=== PATIENT | male | born 1945 | race Caucasian/White ===

== ENCOUNTER 2017-07-04 07:36 | Day surgery (SDC) | payer MEDICARE, BC ==
[~2017-07-04 07:36] MED LIST: Cefuroxime 10 MG/ML SYRINGE EYERT SCH; Lidocaine 1% PF 2 ML SDV INJECT SCH; Pilocarpine 4% Ophth Soln 15 ML Bot EYERT SCH
[2017-07-04] MEDS: Polymyxin B/Trimethoprim 10 ML Bottle EYERT SCH ×3 (07:44→09:15)
[2017-07-04] MEDS: Brimonidine 0.2% Ophth Soln 5 ML Bottle EYERT SCH ×3 (07:48→09:15)
--- NOTE | 2017-07-04 07:50 | PCM.PREANE ---
Preanesthetic Assessment - Anesthesia/Transfusion/Family Hx Anesthesia History: Prior Anesthesia Without Reaction Family History of Anesthesia Reaction: No Transfusion History: No Prior Transfusion(s) Intubation History: Unknown - Review of Systems General: No Symptoms Pulmonary: No Symptoms (quit smoking in 1967) Cardiovascular: No Symptoms, Palpitations Gastrointestinal: No Symptoms (gerd) Neurological: Numbness (diabetic neuropathy noted bilateral feet.) Other: Reports: Easy Bleeding, Diabetes (on metformin and levimir, and glybizide), Thyroid Problems (hypothyroid) - Physical Assessment NPO Status Date: 07/03/17 NPO Status Time: 19:00 Pulse: 63 O2 Sat by Pulse Oximetry: 96 Respiratory Rate: 16 Blood Pressure: 134/71 Temperature: 36.1 C Height: 1.93 m Weight: 95.254 kg ASA Class: 2 Mental Status: Alert & Oriented x3 Airway Class: Mallampati = 2 Dentition: Reports: Normal Dentition, Partial (upper), Missing Tooth/Teeth, Caries Thyro-Mental Finger Breadths: 3 Mouth Opening Finger Breadths: 3 ROM/Head Extension: Full Lungs: Clear to Auscultation, Normal Respiratory Effort Cardiovascular: Regular Rate, Regular Rhythm, No Murmurs - Allergies Allergies/Adverse Reactions: Allergies Allergy/AdvReac Type Severity Reaction Status Date / Time No Known Allergies Allergy Verified 07/03/17 10:38 - Anesthesia Plan Pre-Op Medication Ordered: None - Acknowledgements Anesthesia Type Planned: MAC Pt an Appropriate Candidate for the Planned Anesthesia: Yes Alternatives and Risks of Anesthesia Discussed w Pt/Guardian: Yes Pt/Guardian Understands and Agrees with Anesthesia Plan: Yes PreAnesthesia Questionnaire - HOME MEDS Home Medications: Home Meds Aspirin [Adult Low Dose Aspirin EC] 81 mg PO DAILY 07/03/17 [History] Insulin Detemir [Levemir] 1 dose SQ BID 07/03/17 [History] Levothyroxine [Synthroid] 100 mcg PO DAILY 07/03/17 [History] glipiZIDE [Glucotrol] 5 mg PO ASDIRECTED 07/03/17 [History] metFORMIN HCl [Metformin HCl] 1,000 mg PO BID 07/03/17 [History] - CURRENT (IN HOUSE) MEDS Current Meds: Current Medications Brimonidine Tartrate (Alphagan 0.2% Oph Soln) 0 ml EYERT ASDIRECTED [facility] Cefuroxime Sodium (Zinacef) 0 mg EYERT ASDIRECTED [facility] Lidocaine HCl (Xylocaine-Mpf 1%) 10 ml INJECT ASDIRECTED [facility] Phenylephrine HCl (Barak-Synephrine 2.5% Ophth Soln) 0 ml EYERT ASDIRECTED [facility] Pilocarpine HCl (Pilocar 4% Ophth Soln) 0 ml EYERT ASDIRECTED [facility] Polymyxin/Trimethoprim Sulfate (Polytrim Ophth Soln) 0 ml EYERT ASDIRECTED [facility] Tetracaine HCl (Tetracaine 0.5% Steri-Unit Eliana) 0 ml EYERT ASDIRECTED [facility] Tropicamide (Mydriacyl 1% Ophth Soln) 0 ml EYERT ASDIRECTED [facility] Stop: 07/07/17 06:01
[2017-07-04] MEDS: Phenylephrine 2.5% Ophth Soln 2 ML Bot EYERT SCH ×5 (07:52→08:57)
[2017-07-04] MEDS: Tetracaine HCl/PF 0.5% 4 ML Bottle EYERT SCH ×2 (08:45→09:07)
--- NOTE | 2017-07-04 09:16 | PCM48HPAN ---
Post Anesthesia Note - EVALUATION WITHIN 48HRS OF ANESTHETIC Vital Signs in Normal Range: Yes Patient Participated in Evaluation: Yes Respiratory Function Stable: Yes Airway Patent: Yes Cardiovascular Function Stable: Yes Hydration Status Stable: Yes Pain Control Satisfactory: Yes Nausea and Vomiting Control Satisfactory: Yes Mental Status Recovered: Yes
== END 2017-07-04 09:21 | disposition home or self-care (01) ==
LOC: JD.SDS 07:36
PROVIDERS: ATTEND Ophthalmology
DX: H25.813 Combined forms of age-related cataract, bilateral (principal); E10.42 Type 1 diabetes mellitus with diabetic polyneuropathy; H40.1134 Primary open-angle glaucoma, bilateral, indeterminate stage; H31.003 Unspecified chorioretinal scars, bilateral; H52.10 Myopia, unspecified eye; E03.9 Hypothyroidism, unspecified; H35.373 Puckering of macula, bilateral; H02.831 Dermatochalasis of right upper eyelid; H02.834 Dermatochalasis of left upper eyelid; Z87.891 Personal history of nicotine dependence; Z79.4 Long term (current) use of insulin; Z79.82 Long term (current) use of aspirin; Z79.899 Other long term (current) drug therapy
CPT/HCPCS: 66984; C1780; J0697; A9270-GY